=== PATIENT | female | born 1995 | race Two or more races ===

== ENCOUNTER 2018-03-14 23:00 | Emergency (ER) | payer SELFPAY ==
[2018-03-14 23:28] VITALS: BP 136/89
[2018-03-14] MEDS ORDERED: BENZONATATE 100 MG CAPSULE PO ONE (23:53)
--- NOTE | 2018-03-14 23:59 | ER Document Report ---
HPI - HPI Pain Level: 3 Notes: Patient is a 22-year-old female with no significant past medical history presents to the ED with mother complaining of a dry semi-productive cough 2 weeks. Her cough is constant throughout the day and at times at night. She is not aware of anything that improves or worsens her cough. She is still eating and drinking without any difficulties. She is urinating normally and having normal bowel movements. She has tried some mlwb-[id number]-nvahiyh meds with minimal relief. Denies any drug allergies. Denies any smoking or IV drug use. No other concerns or complaints at this time. Patient states that she still ambulatory without any difficulties. Denies any headache, fever, neck pain, URI , sore throat, chest pain, palpitations, syncope, shortness of breath, wheeze, dyspnea, abdominal pain, nausea/vomiting/diarrhea, urinary retention, dysuria, hematuria, or rash. - ROS Systems Reviewed and Negative: Yes All other systems reviewed and negative - CONSTITUTIONAL Constitutional: DENIES: Fever, Chills - EENT EENT: DENIES: Sore Throat, Ear Pain, Eye problems - NEURO Neurology: REPORTS: Headache. DENIES: Weakness, Vision blurred, Dizzinesss / Vertigo - CARDIOVASCULAR Cardiovascular: DENIES: Chest pain - RESPIRATORY Respiratory: REPORTS: Coughing. DENIES: Trouble Breathing - GASTROINTESTINAL Gastrointestinal: DENIES: Abdominal Pain, Black / Bloody Stools - REPRODUCTIVE Reproductive: DENIES: : - MUSCULOSKELETAL Musculoskeletal: DENIES: Extremity pain Past Medical History - Social History Smoking Status: Never Smoker Family History: Reviewed & Not Pertinent Patient has suicidal ideation: No Patient has homicidal ideation: No Renal/ Medical History: Denies: Hx Peritoneal Dialysis - Immunizations Immunizations up to date: Yes Hx Diphtheria, Pertussis, Tetanus Vaccination: Yes Vertical Provider Document - CONSTITUTIONAL Agree With Documented VS: Yes Notes: PHYSICAL EXAMINATION: GENERAL: Well-appearing, well-nourished and in no acute distress. A&Ox4. Answers questions appropriately. Moves comfortably w/o notable distress HEAD: Atraumatic, normocephalic. EYES: Pupils equal round and reactive to light, extraocular movements intact, sclera anicteric, conjunctiva are normal. ENT: EAC clear b/l. TM's intact b/l without erythema, fluid, or perforation. Nares patent and without discharge. oropharynx no erythema without exudates. No tonsilar hypertrophy without erythema or exudate. No palatine shift. Uvula midline. No tongue protrusion. No drooling, hoarseness, or airway compromise. Moist mucous membranes. No sinus tenderness. NECK: Normal range of motion, supple without lymphadenopathy. No rigidity/ meningismus. LUNGS: Breath sounds clear to auscultation bilaterally and equal. No wheezes rales or rhonchi. No retractions HEART: Regular rate and rhythm without murmurs, rubs, gallops. NEUROLOGICAL: Normal speech, normal gait. PSYCH: Normal mood, normal affect. SKIN: Warm, Dry, normal turgor, no rashes or lesions noted. - INFECTION CONTROL TRAVEL OUTSIDE OF THE [place] IN LAST 30 DAYS: No Course - Re-evaluation Re-evalutation: 03/14/18 01:04 Patient is an afebrile, well-hydrated, 22-year-old female who presents to the ED with acute bronchitis, suspect viral. Vitals are stable. PE is otherwise unremarkable. Tessalon given PO today. CXR unremarkable for acute pathology. No other labs or imaging warranted at this time based on H&P. Patient has no significant cardiopulmonary or immunocompromised medical conditions. Patient's lungs are clear to auscultation bilaterally without tachycardia, hypoxia, or tachypnea. Patient is tolerating p.o. without any difficulties. Low suspicion for any meningitis, sepsis, peritonsillar/pharyngeal abscess, respiratory compromise, severe dehydration, or other emergent systemic condition at this time. Patient is aware this condition can change from initial presentation and she needs to monitor symptoms closely. Rx for tessalon pearles. mother is demanding an antibiotic. Advised I would send her with a pocket script only that she may begin with worsening symptoms x3 days. Conservative measures otherwise for symptoms. Recheck with your PCM in 3-5 days. Return to the ED with any worsening/concerning symptoms otherwise as reviewed in discharge. Patient is in agreement. - Vital Signs Vital signs: Temp Pulse Resp BP Pulse Ox 98.7 F 93 18 136/89 H 98 03/14/18 23:27 03/14/18 23:27 03/14/18 23:27 03/14/18 23:27 03/14/18 23:27 Discharge - Discharge Clinical Impression: Acute bronchitis Qualifiers: Bronchitis organism: unspecified organism Qualified Code(s): J20.9 - Acute bronchitis, unspecified Condition: Stable Disposition: HOME, SELF-CARE Instructions: Bronchitis ([facility]) Additional Instructions: Maintain adequate fluid intake Take meds as directed tylenol/ibuprofen as needed over the counter cold medication as needed for symptoms Humidified air may help Wash your hands regularly Wear a mask when coughing F/u: with your PCM in 3-5 days for a recheck Return to the ED with any fever, worsening pain, chest pain, palpitations, syncope, worsening GUARDADO, neck pain/stiffness, shortness of breath, wheezing, drooling, trouble swallowing/breathing, abdominal pain, n/v/d, rash, or worsening/concerning symptoms otherwise. Prescriptions: Amoxicillin Trihydrate [Amoxil 875 mg Tablet] 1 tab PO BID #20 tablet Forms: Elevated Blood Pressure Referrals: [facility] [Provider Group] - Follow up as needed [facility] [Provider Group] - Follow up as needed
--- NOTE | 2018-03-15 01:02 | RADIOLOGY REPORT (SQ) ---
EXAM DESCRIPTION: 2 views of the chest CLINICAL HISTORY: cough COMPARISON: None. FINDINGS: Frontal and lateral views of the chest. The cardiomediastinal silhouette has normal size and contour. No consolidation, pneumothorax, or pleural effusion. No displaced rib fractures identified. Upper abdominal soft tissues are unremarkable. IMPRESSION: 1. No acute pulmonary process identified.
== END 2018-03-15 01:19 | disposition home or self-care (01) ==
LOC: ER 23:00
DX: J20.9 Acute bronchitis, unspecified (principal)
CPT/HCPCS: 71046; 99283

== ENCOUNTER → 2018-04-11 | Outpatient (CLI) | payer SELFPAY ==
--- NOTE | 2018-04-11 15:18 | RADIOLOGY REPORT (SQ) ---
EXAM DESCRIPTION: U/S OB 14+ TRNABD 1GES W/O DOP COMPLETED DATE/TIME: 04/11/2018 2:46 pm REASON FOR STUDY: ENCTR FOR SUPERVISION OF NORMAL 1ST , 2ND TRIMESTER (Z34.02) Z34.02 ENCN TR FOR SUPRVSN OF NORMAL FIRST PREG, SECOND TRIME COMPARISON: None. TECHNIQUE: Transabdominal static and realtime grayscale images acquired of the pelvis. Additional se lected spectral and color Doppler images recorded. All images stored on PACs. CG: Not available. CLINICAL DATES: 15 week 1 day. LIMITATIONS: None. FINDINGS: FETUS: Living intrauterine . ULTRASOUND EGA: 8 week 4 day. ULTRASOUND SARAH: 11/17/2018. CRL: 2.01 cm. FHR: 163 beats per minute. SUBCHORIONIC BLEED: No. SIZE OF BLEED: Not applicable. UTERUS: No masses. No anomalies. CERVICAL LENGTH: 2.8 cm. Closed. RIGHT ADNEXA: Normal ovary with normal vascular flow. No adnexal free fluid. No adnexal masses. LEFT ADNEXA: Normal ovary with normal vascular flow. No adnexal free fluid. Corpus Luteum measuring 1.8 cm. FREE FLUID: None. OTHER: No other significant finding. IMPRESSION: LIVING INTRAUTERINE . EGA 8 WEEK 4 DAY. Trimester of : First - 0 to 13 weeks. TECHNICAL DOCUMENTATION: JOB ID: [id number] [employer]- All Rights Reserved rev Reading location - IP/workstation name: [email or web address]
== END ==
LOC: RAD 13:47
PROVIDERS: ATTEND Nurse Practitioner Women's Health
DX: Z34.02 Encounter for supervision of normal first pregnancy, second trimester (principal)
CPT/HCPCS: 76805

== ENCOUNTER 2018-10-01 02:32 | Outpatient (CLI) | payer MEDICAID ==
[2018-10-01 03:15] LABS: URINE AMPHETAMINES SCREEN NEGATIVE; URINE BARBITURATES SCREEN NEGATIVE; URINE BENZODIAZEPINES SCREEN NEGATIVE; URINE COCAINE SCREEN NEGATIVE; URINE MARIJUANA (THC) SCREEN NEGATIVE; URINE METHADONE SCREEN NEGATIVE; URINE PHENCYCLIDINE SCREEN NEGATIVE
[2018-10-01 03:35] LABS: APPEARANCE,URINE CLEAR; BILIRUBIN,URINE NEGATIVE (NEGATIVE); COLOR,URINE YELLOW; GLUCOSE, URINE 50 mg/dL (NEGATIVE); KETONES,URINE NEGATIVE (NEGATIVE); LEUKOCYTE ESTERASE,URINE LARGE (NEGATIVE); NITRITE,URINE NEGATIVE (NEGATIVE); PROTEIN,URINE NEGATIVE (NEGATIVE); URINE SPECIFIC GRAVITY 1.006; UROBILINOGEN,URINE NEGATIVE mg/dL (<2.0)
[2018-10-01 04:04] LABS: RBCS (WET MOUNT) NO RBCS SEEN; T.VAGINALIS (WET MOUNT) NO TRICHOMONAS SEEN; WBCS (WET MOUNT) 3+ WBCS SEEN; YEAST (WET MOUNT) YEAST SEEN
[2018-10-01 04:05] LABS: BACTERIA (WET MOUNT) 3+ BACTERIA SEEN
[2018-10-01 05:31] LABS: CHLAM PCR NOT DETECTED (NOT DETECT); GON PCR NOT DETECTED (NOT DETECT)
--- NOTE | 2018-10-01 05:46 | Non Stress Test Report ---
Non Stress Test Datetime Report Generated by CPN: 10/01/2018 05:46 DEMOGRAPHIC EGA NST: 33.2 INDICATION Indication for Study: Ordered by Provider MONITORING Monitor Explained: Monitor Explained; Test Explained Time on Monitor: 10/01/2018 05:04 Time off Monitor: 10/01/2018 05:41 NST Duration: 37 NST INTERVENTIONS NST Interventions: PO Hydration; Reposition Patient Physician Notified NST: Dr. Younger BABY A: [id number] BABY A Movement : Present Contraction Frequency : irritability FHR Baseline : 140 Accelerations : 15X15 Decelerations : None Variability : Moderate 6-25bpm NST Review: Meets Criteria for Reactive NST NST Review and Verified By : Randal VINCENT Results: Reactive NST REPORT Report Trigger: Send Report
[2018-10-01] MEDS ORDERED: FLUCONAZOLE 100 MG TABLET PO ONE (05:50)
[2018-10-01] MEDS ORDERED: FLUCONAZOLE 100 MG TABLET ONE (05:51)
== END 2018-10-01 05:56 | disposition home or self-care (01) ==
LOC: LC 02:32
PROVIDERS: ATTEND Obstetrics & Gynecology
PROC: 4A1HXCZ Monitoring of Products of Conception, Cardiac Rate, External Approach (ICD-10-PCS; principal; 2018-10-01)
DX: Z36.89 Encounter for other specified antenatal screening (principal)
CPT/HCPCS: 59025; 87210; 81001; 80307; 87491; 87591; 84112; J3490

== ENCOUNTER 2018-10-26 00:51 | Outpatient (CLI) | payer MEDICAID ==
[2018-10-26 01:37] LABS: ABSOLUTE EOSINOPHILS # (AUTO) 0.2 10^3/uL (0.0-0.6); ABSOLUTE LYMPHOCYTES (AUTO) 2.2 10^3/uL (0.5-4.7); ABSOLUTE MONOCYTES (AUTO) 0.8 10^3/uL (0.1-1.4); ABSOLUTE NEUT (AUTO) 9.3 10^3/uL (1.7-8.2); BASOPHILS % (AUTO) 0.2 % (0-2); EOSINOPHILS % (AUTO) 1.2 % (0-6); HEMATOCRIT 30.6 % (36.0-47.0); LYMPHOCYTES % (AUTO) 17.4 % (13-45); MEAN CORPUSCULAR HEMOGLOBIN 22.7 pg (27.0-33.4); MEAN CORPUSCULAR HGB CONC 32.6 g/dL (32.0-36.0); MEAN CORPUSCULAR VOLUME 70 fl (80-97); MONOCYTES % (AUTO) 6.3 % (3-13); PLATELET COUNT 212 10^3/uL (150-450); RED BLOOD COUNT 4.39 10^6/uL (3.72-5.28); RED CELL DISTRIBUTION WIDTH 15.5 % (11.5-14.0); SEGMENTED NEUTROPHILS % (AUTO) 74.9 % (42-78); TOTAL CELLS COUNTED % (AUTO) 100 %; WHITE BLOOD COUNT 12.4 10^3/uL (4.0-10.5)
[2018-10-26 01:40] LABS: APPEARANCE,URINE CLOUDY; BILIRUBIN,URINE NEGATIVE (NEGATIVE); COLOR,URINE YELLOW; GLUCOSE, URINE 50 mg/dL (NEGATIVE); KETONES,URINE NEGATIVE (NEGATIVE); LEUKOCYTE ESTERASE,URINE LARGE (NEGATIVE); NITRITE,URINE NEGATIVE (NEGATIVE); PROTEIN,URINE NEGATIVE (NEGATIVE); URINE SPECIFIC GRAVITY 1.014; UROBILINOGEN,URINE NEGATIVE mg/dL (<2.0)
[2018-10-26 01:58] LABS: ALANINE AMINOTRANSFERASE 10 U/L (9-52); ALBUMIN 3.2 g/dL (3.5-5.0); ALKALINE PHOSPHATASE 117 U/L (38-126); ANION GAP 7 (5-19); ASPARTATE AMINO TRANSFERASE 15 U/L (14-36); BILIRUBIN,DIRECT 0.1 mg/dL (0.0-0.4); BILIRUBIN,TOTAL 0.3 mg/dL (0.2-1.3); BLOOD UREA NITROGEN 8 mg/dL (7-20); CALCIUM 9.2 mg/dL (8.4-10.2); CARBON DIOXIDE 24 mmol/L (22-30); CHLORIDE 106 mmol/L (98-107); GLUCOSE 109 mg/dL (75-110); TOTAL PROTEIN 6.2 g/dL (6.3-8.2); URIC ACID 3.4 mg/dL (2.5-6.2)
[2018-10-26 01:59] LABS: URINE AMPHETAMINES SCREEN NEGATIVE; URINE BARBITURATES SCREEN NEGATIVE; URINE BENZODIAZEPINES SCREEN NEGATIVE; URINE COCAINE SCREEN NEGATIVE; URINE MARIJUANA (THC) SCREEN NEGATIVE; URINE METHADONE SCREEN NEGATIVE; URINE PHENCYCLIDINE SCREEN NEGATIVE
[2018-10-26 02:03] LABS: UR PRO/CREAT RATIO RESULT 0.2 mg/mg (0.0-0.2); URINE CREATININE 84.9 mg/dL (16-327); URINE PROTEIN 16.2 mg/dL (<12)
== END 2018-10-26 02:58 | disposition home or self-care (01) ==
LOC: LC 00:51
PROVIDERS: ATTEND Student in an Organized Health Care Education/Training Program
PROC: 4A1HXCZ Monitoring of Products of Conception, Cardiac Rate, External Approach (ICD-10-PCS; principal; 2018-10-26)
DX: O47.1 False labor at or after 37 completed weeks of gestation (principal); Z3A.36 36 weeks gestation of pregnancy
CPT/HCPCS: 36415; 59025; 80053; 80307; 81005; 82570; 83615; 84156; 84550; 85025; 87086

== ENCOUNTER 2018-10-28 13:25 | Outpatient (CLI) | payer MEDICAID ==
--- NOTE | 2018-10-28 13:29 | Non Stress Test Report ---
Non Stress Test Datetime Report Generated by CPN: 10/28/2018 13:28 DEMOGRAPHIC EGA NST: 36.6 INDICATION Indication for Study: Ordered by Provider URINE RESULTS Urine Protein, NST: Negative Urine Ketones - NST: Negative Urine Glucose - NST: Positive Urine Blood - NST: Negative MONITORING Monitor Explained: Monitor Explained; Test Explained; Patient Verbalized Understanding Time on Monitor: 10/26/2018 01:12 Time off Monitor: 10/26/2018 02:46 NST Duration: 94 NST INTERVENTIONS NST Interventions: PO Hydration Physician Notified NST: Dr. Coleman BABY A: [id number] BABY A Movement : Present Contraction Frequency : Occasional FHR Baseline : 135 Accelerations : 15X15 Decelerations : None Variability : Moderate 6-25bpm NST Review: Meets Criteria for Reactive NST NST Review and Verified By : Arthur Rodriguez RN NSElvi Results: Reactive NST REPORT Report Trigger: Send Report
[2018-10-28 13:49] LABS: APPEARANCE,URINE SLIGHTLY-CLOUDY; BILIRUBIN,URINE NEGATIVE (NEGATIVE); COLOR,URINE YELLOW; GLUCOSE, URINE >=500 mg/dL (NEGATIVE); KETONES,URINE TRACE mg/dL (NEGATIVE); LEUKOCYTE ESTERASE,URINE LARGE (NEGATIVE); NITRITE,URINE NEGATIVE (NEGATIVE); PROTEIN,URINE 30 mg/dL (NEGATIVE); URINE SPECIFIC GRAVITY 1.023; UROBILINOGEN,URINE NEGATIVE mg/dL (<2.0)
[2018-10-28 14:07] LABS: URINE AMPHETAMINES SCREEN NEGATIVE; URINE BARBITURATES SCREEN NEGATIVE; URINE BENZODIAZEPINES SCREEN NEGATIVE; URINE COCAINE SCREEN NEGATIVE; URINE MARIJUANA (THC) SCREEN NEGATIVE; URINE METHADONE SCREEN NEGATIVE; URINE PHENCYCLIDINE SCREEN NEGATIVE
--- NOTE | 2018-10-28 14:44 | Non Stress Test Report ---
Non Stress Test Datetime Report Generated by CPN: 10/28/2018 14:44 DEMOGRAPHIC EGA NST: 37.1 INDICATION Indication for Study: Ordered by Provider VITAL SIGNS Temperature - NST: 98.4 RESP - NST: 16 MONITORING Monitor Explained: Monitor Explained; Test Explained; Patient Verbalized Understanding Time on Monitor: 10/28/2018 13:36 Time off Monitor: 10/28/2018 14:37 NST Duration: 61 NST INTERVENTIONS NST Interventions: PO Hydration; Reposition Patient Physician Notified NST: Dr. Js BABY A Movement : Present Contraction Frequency : 0 FHR Baseline : 135 Accelerations : 15X15 Decelerations : None Variability : Moderate 6-25bpm NST Review: Meets Criteria for Reactive NST NST Review and Verified By : MIRANDA Gonzalez NST Results: Reactive NST REPORT Report Trigger: Send Report
== END 2018-10-28 14:45 | disposition home or self-care (01) ==
LOC: LC 13:25
PROVIDERS: ATTEND Obstetrics & Gynecology
PROC: 4A1HXCZ Monitoring of Products of Conception, Cardiac Rate, External Approach (ICD-10-PCS; principal; 2018-10-28)
DX: O47.1 False labor at or after 37 completed weeks of gestation (principal); Z3A.37 37 weeks gestation of pregnancy
CPT/HCPCS: 59025; 80307; 81005; 84112

== ENCOUNTER 2018-10-30 09:38 | Outpatient (CLI) | payer MEDICAID ==
[2018-10-30 11:56] LABS: URINE AMPHETAMINES SCREEN NEGATIVE; URINE BARBITURATES SCREEN NEGATIVE; URINE BENZODIAZEPINES SCREEN NEGATIVE; URINE COCAINE SCREEN NEGATIVE; URINE MARIJUANA (THC) SCREEN NEGATIVE; URINE METHADONE SCREEN NEGATIVE; URINE PHENCYCLIDINE SCREEN NEGATIVE
--- NOTE | 2018-10-30 12:09 | Non Stress Test Report ---
Non Stress Test Datetime Report Generated by CPN: 10/30/2018 12:09 DEMOGRAPHIC EGA NST: 37.3 INDICATION Indication for Study: Diabetes Mellitus; Ordered by Provider VITAL SIGNS Temperature - NST: 98.3 Pulse - NST: 95 RESP - NST: 16 NBPSYS NST: 117 NBPDIA NST: 59 MONITORING Monitor Explained: Monitor Explained; Test Explained; Patient Verbalized Understanding Time on Monitor: 10/30/2018 09:46 Time off Monitor: 10/30/2018 12:03 NST Duration: 137 NST INTERVENTIONS NST Interventions: PO Hydration; Reposition Patient Physician Notified NST: P Cm CNM BABY A: [id number] BABY A Movement : Present Contraction Frequency : irregular FHR Baseline : 135 Accelerations : 15X15 Decelerations : None Variability : Moderate 6-25bpm NST Review: Meets Criteria for Reactive NST NST Review and Verified By : Roberta Mast RNC NST Results: Reactive NST REPORT Report Trigger: Send Report
== END 2018-10-30 12:06 | disposition home or self-care (01) ==
LOC: LC 09:38
PROVIDERS: ATTEND Student in an Organized Health Care Education/Training Program
PROC: 4A1HXCZ Monitoring of Products of Conception, Cardiac Rate, External Approach (ICD-10-PCS; principal; 2018-10-30)
DX: O24.913 Unspecified diabetes mellitus in pregnancy, third trimester (principal); O47.1 False labor at or after 37 completed weeks of gestation; Z3A.37 37 weeks gestation of pregnancy
CPT/HCPCS: 59025; 80307; 82962

== ENCOUNTER 2018-11-06 15:18 | Inpatient (IN) | payer MEDICAID ==
[2018-11-06 15:45] LABS: APPEARANCE,URINE CLOUDY; BILIRUBIN,URINE NEGATIVE (NEGATIVE); COLOR,URINE YELLOW; GLUCOSE, URINE >=500 mg/dL (NEGATIVE); KETONES,URINE NEGATIVE (NEGATIVE); LEUKOCYTE ESTERASE,URINE LARGE (NEGATIVE); NITRITE,URINE NEGATIVE (NEGATIVE); PROTEIN,URINE NEGATIVE (NEGATIVE); URINE SPECIFIC GRAVITY 1.015; UROBILINOGEN,URINE NEGATIVE mg/dL (<2.0)
[2018-11-06 16:02] LABS: URINE AMPHETAMINES SCREEN NEGATIVE; URINE BARBITURATES SCREEN NEGATIVE; URINE BENZODIAZEPINES SCREEN NEGATIVE; URINE COCAINE SCREEN NEGATIVE; URINE MARIJUANA (THC) SCREEN NEGATIVE; URINE METHADONE SCREEN NEGATIVE; URINE PHENCYCLIDINE SCREEN NEGATIVE
[2018-11-06 16:18] LABS: BACTERIA (WET MOUNT) 4+ BACTERIA SEEN; T.VAGINALIS (WET MOUNT) NO TRICHOMONAS SEEN; WBCS (WET MOUNT) 4+ WBCS SEEN; YEAST (WET MOUNT) BUDDING YEAST SEEN
--- NOTE | 2018-11-06 17:39 | RADIOLOGY REPORT (SQ) ---
EXAM DESCRIPTION: U/S OB LIMITED COMPLETED DATE/TIME: 11/06/2018 5:20 pm REASON FOR STUDY: JUAN to r/o rupture of membranes COMPARISON: None. TECHNIQUE: Limited transabdominal grayscale ultrasound for evaluation of specific requested obstetri sidney parameters. LIMITATIONS: None. FINDINGS: JUAN: 6.6 cm. FHR: 139 beats per minute. PRESENTATION: Cephalic. PLACENTA: Anterior ANATOMY: Not assessed OTHER: No other significant findings. IMPRESSION: LIMITED OBSTETRICAL ULTRASOUND WITH MEASURED PARAMETERS DELINEATED ABOVE. Trimester of : Third trimester - 28 weeks to delivery. TECHNICAL DOCUMENTATION: JOB ID: [id number] [employer]- All Rights Reserved Reading location - IP/workstation name: [email or web address]
[2018-11-06 19:18] LABS: ABSOLUTE EOSINOPHILS # (AUTO) 0.1 10^3/uL (0.0-0.6); ABSOLUTE LYMPHOCYTES (AUTO) 1.9 10^3/uL (0.5-4.7); ABSOLUTE MONOCYTES (AUTO) 0.8 10^3/uL (0.1-1.4); ABSOLUTE NEUT (AUTO) 9.9 10^3/uL (1.7-8.2); BASOPHILS % (AUTO) 0.2 % (0-2); EOSINOPHILS % (AUTO) 0.9 % (0-6); HEMATOCRIT 29.7 % (36.0-47.0); HEMOGLOBIN 9.5 g/dL (12.0-15.5); LYMPHOCYTES % (AUTO) 15.2 % (13-45); MEAN CORPUSCULAR HEMOGLOBIN 22.3 pg (27.0-33.4); MEAN CORPUSCULAR HGB CONC 32.2 g/dL (32.0-36.0); MEAN CORPUSCULAR VOLUME 69 fl (80-97); MONOCYTES % (AUTO) 6.4 % (3-13); PLATELET COUNT 199 10^3/uL (150-450); RED BLOOD COUNT 4.29 10^6/uL (3.72-5.28); RED CELL DISTRIBUTION WIDTH 15.8 % (11.5-14.0); SEGMENTED NEUTROPHILS % (AUTO) 77.3 % (42-78); TOTAL CELLS COUNTED % (AUTO) 100 %; WHITE BLOOD COUNT 12.8 10^3/uL (4.0-10.5)
--- NOTE | 2018-11-06 23:45 | RADIOLOGY REPORT (SQ) ---
EXAM DESCRIPTION: US LIMITED COMPLETED DATE/TME: 11/06/2018 23:30 CLINICAL HISTORY: 23 years, Female, JUAN to r/o rupture COMPARISON: None. TECHNIQUE: Prior Limited third trimester ultrasound from today's date LIMITATIONS: None. FINDINGS: Limited transabdominal imaging for specific assessment of the amniotic fluid volume was performed, per request. Amniotic fluid volume is a 6.2 cm. heart tones were obtained at 137 bpm. IMPRESSION: JUAN 6.2 cm. On the prior exam, JUAN was 6.6 cm copyright 2010 [employer]- All Rights Reserved
[2018-11-06] MEDS ORDERED: DINOPROSTONE 10 MG VAGINAL INSERT.SR PV PRN (23:52)
[2018-11-06] MEDS ORDERED: DINOPROSTONE 10 MG VAGINAL INSERT.SR ONE (23:58)
[2018-11-07] MEDS ORDERED: RINGERS SOLUTION,LACTATED 300 ML IV ONE (00:15)
[2018-11-07] MEDS ORDERED: NALBUPHINE HCL INJ 10 MG/1 ML AMPULE ONE (02:46)
[2018-11-07] MEDS: RINGERS SOLUTION,LACTATED 1,000 ML IV PRN ×2 (02:57→06:54)
[2018-11-07] MEDS ORDERED: NALBUPHINE HCL INJ 10 MG/1 ML AMPULE INJ ONE (03:00)
[2018-11-07] MEDS ORDERED: MISOPROSTOL 0.2 MG TABLET ONE (03:44)
[2018-11-07] MEDS ORDERED: OXYTOCIN/NORMAL SALINE 20 UNIT/1,000 ML RTUINJ ONE (03:44)
[2018-11-07] MEDS ORDERED: OXYTOCIN 10 UNIT/ML VIAL ONE (03:44)
[2018-11-07] MEDS ORDERED: LIDOCAINE 1% INJ-PF (10 MG/ML) 30 ML SDV ONE (03:44)
[2018-11-07] MEDS ORDERED: EPHEDRINE SULFATE INJ 50 MG/1 ML AMPULE ONE (06:04)
[2018-11-07] MEDS ORDERED: BUPIVACAINE HCL 0.25 % INJ/PF (2.5 MG/1 ML) 30 ML VIAL ONE (06:05)
[2018-11-07] MEDS ORDERED: FENTANYL/BUPIVACAINE/NS/PF 300 MCG/150 ML RTUINJ EPI ONE (06:05)
--- NOTE | 2018-11-07 09:43 | Admission Physical ---
Datetime Report Generated by CPN: 11/07/2018 09:43 CURRENT ADMISSION Chief Complaint: Suspected Ruptured Membranes Indication for Induction: Other Indication for Induction- Other: JUAN dropping with pt c/o possible LOF since 1430 yesterday. actim prom negative, but with dropping JUAN, decision was made to admit Admit Impression : Term, Intrauterine ; No Active Labor Admit Plan: Admit to Unit; Initiate Labor Induction Protocol ALLERGIES Medication Allergies: No Medication Allergies: No Known Allergies (10/30/2018) Latex: No Latex Allergies OBSTETRICAL HISTORY EDC: 11/17/2018 00:00 : 1 Para: 0 Term: 0 : 0 SAB: 0 IAB: 0 Ectopic: 0 Livin Cesareans: 0 VBACs: 0 Multiple Births: 0 Gestational Diabetes: Yes Rh Sensitization: No Incompetent Cervix: No WAQAR: No Infertility: No ART Treatment: No Uterine Anomaly: No IUGR: No Hx Previous C/S: No Macrosomia: No Hx Loss/Stillborn: No PIH: No Hx : No Placenta Previa/Abruption: No Depression/PP Depression: No PTL/PROM: No Post Hemorrhage: No Current Procedures: Ultrasound; NST Obstetrical History Comments: G1- current GDM on glyburide SEE RECORDS Alcohol: No Marijuana : No Cocaine: No Other Illicit Drugs: No Cigarettes: Never Smoker. 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 Heart Disease: No Hosp/Surgery: No Autoimmune Disorder: No Anesthetic Complications: No Kidney Disease: No Abnormal Pap Smear: No Neuro/Epilepsy: No Psychiatric Disorders: No Other Medical Diseases: Yes Hepatitis/Liver Disease: No Significant Family History: No Varicosities/Phlebitis: No Trauma/Violence : No Thyroid Dysfunction: No Medical History Comments: benign breast mass; anemic as a teenager; bronchitis 2018 INFECTIOUS HISTORY Gonorrhea: Yes Genital Herpes: No Chlamydia: Yes Tuberculosis: No Syphilis: No Hepatitis: No HIV/AIDS Exposure: No Rash or Viral Illness: No HPV: No Infectious History Comments: Gonorrhea and Chlamydia 2013; chlamydia 2016 PHYSICAL EXAM General: Normal HEENT: Normal Neurologic: Normal Thyroid: Deferred Heart: Normal Lungs: Normal Breast: Deferred Back: Normal Abdomen: Normal Genitourinary Exam: Normal Extremities: Normal DTRs: Deferred Pelvic Type: Adequate Vital Signs: Reviewed; Within Normal Limits VAGINAL EXAM Dilatation: AL Effacement: 100 Station: 0 Contraction Comments: Q 2 mins without pitocin and cervidil out MEMBRANES Membranes: Ruptured Amniotic Fluid Color: Clear FETUS A EGA: 38.4 Monitoring: External US FHR- Baseline: 150 Variability: Moderate 6-25bpm Accelerations: 15X15 Decelerations: None Estimated Weight (gm): 3200 Presentation: Vertex Admit Comment: G1 at 38+4 admitted yesterday, noncompliant diabetic. BS 145 this morning, c/w dr layne and insulin sliding scale ordered. AROM at 0900, baby LOT to SCOTTY and 0 station. P:labor down for now. anticipate PLANS FOR LABOR AND DELIVERY Labor and Delivery: None Pain Management: Epidural Feeding Preference: Breast Benefit of Breast Feed Discussed: Yes Circumcision: N/A INFORMED CONSENT Assignment: Angelique Cannon MD Signature: with User ID: [email or web address] : with User ID: [email or web address]
[2018-11-07] MEDS ORDERED: OXYTOCIN/NORMAL SALINE 20 UNIT/1,000 ML RTUINJ IV PRN ×2 (13:07→15:12)
[2018-11-07] MEDS ORDERED: MEASLES,MUMPS&RUBELLA VACC/PF 0.5 ML VIAL SUBCUT PRN (15:12)
[2018-11-07] MEDS ORDERED: DIPH/PERTUSS(ACELL)/TETANUS VAC/PF 0.5 ML SYR (>=10YO) IM PRN (15:12)
[2018-11-07] MEDS ORDERED: BENZOCAINE/MENTHOL AEROSOL SPRAY 56 ML TOP PRN (15:12)
[2018-11-07] MEDS ORDERED: DIBUCAINE 1% OINTMENT 28 GM TP PRN (15:12)
[2018-11-07] MEDS ORDERED: ACETAMINOPHEN WITH CODEINE #3 TABLET PO PRN ×2 (15:12)
[2018-11-07] MEDS ORDERED: ZOLPIDEM TARTRATE 5 MG TABLET PO PRN (15:12)
--- NOTE | 2018-11-07 16:49 | Warning Signs in Babies ---
VOD Warning Signs Datetime Report Generated by [facility]: 11/07/2018 16:49 VOD#608 -Warning Signs in Babies: Viewed with Parent(s)/Family (10/01/2018 02:33:Humberto Sinclair RN)
[2018-11-07] MEDS: FERROUS SULFATE 325 MG TABLET PO SCH (18:32)
[2018-11-07] MEDS: DOCUSATE SODIUM 100 MG CAPSULE PO SCH (18:32)
[2018-11-07] MEDS: IBUPROFEN 800 MG TABLET PO SCH (21:44)
[2018-11-08] MEDS: IBUPROFEN 800 MG TABLET PO SCH ×3 (05:34→21:37)
[2018-11-08 07:34] LABS: HEMATOCRIT 26.2 % (36.0-47.0); HEMOGLOBIN 8.3 g/dL (12.0-15.5); MEAN CORPUSCULAR HGB CONC 31.9 g/dL (32.0-36.0); MEAN CORPUSCULAR VOLUME 69 fl (80-97); PLATELET COUNT 188 10^3/uL (150-450); RED BLOOD COUNT 3.79 10^6/uL (3.72-5.28); RED CELL DISTRIBUTION WIDTH 15.9 % (11.5-14.0); WHITE BLOOD COUNT 13.8 10^3/uL (4.0-10.5)
[2018-11-08] MEDS ORDERED: IRON SUCROSE COMPLEX INJ/PF 100 MG/5 ML SDV IV ONE (09:00)
[2018-11-08] MEDS: SENNOSIDES/DOCUSATE 8.6-50 MG 1 EACH TABLET PO SCH (09:59)
[2018-11-08] MEDS: DOCUSATE SODIUM 100 MG CAPSULE PO SCH ×2 (09:59→18:03)
[2018-11-08] MEDS: FERROUS SULFATE 325 MG TABLET PO SCH ×2 (09:59→18:03)
[2018-11-08] MEDS: PRENATAL VITAMIN W DHA CAPSULE PO SCH (09:59)
--- NOTE | 2018-11-08 10:22 | PDOC PROGRESS REPORT ---
Subjective-OB Progress Note for:: 11/08/18 Subjective: reports pain controlled with current meds, bleeding slowing, denies needs Physical Exam (OB) Vital Signs: Temp Pulse Resp BP Pulse Ox 97.8 F 78 18 113/59 L 99 11/08/18 08:19 11/08/18 08:19 11/08/18 08:19 11/08/18 08:19 11/08/18 08:19 Intake & Output 11/07/18 11/08/18 11/09/18 06:59 06:59 06:59 Intake Total 494 1000 Balance 494 1000 Weight 80.3 kg - Abdomen Description: Soft Hernia Present: No Fundal Description: Firm, Midline Fundal Height: u/u - u/2 - Abdominal Distension: No distension Tenderness: Nontender - Extremities Lower extremities: Jemal's sign - neg Calf: Normal, Nontender Objective-Diagnostic Laboratory: 11/08/18 07:04 11/08/18 07:04 WBC 13.8 H RBC 3.79 Hgb 8.3 L Hct 26.2 L MCV 69 L MCH 22.0 L MCHC 31.9 L RDW 15.9 H Plt Count 188 Assessment and Plan(PN) - Assessment and Plan (1) Obstetrical laceration Is this a current diagnosis for this admission?: Yes (2) Status post vacuum-assisted vaginal delivery Is this a current diagnosis for this admission?: Yes - Time Spent with Patient Time with patient: Less than 15 minutes Medications reviewed and adjusted accordingly: Yes - Disposition Anticipated Discharge: Home Within: within 24 hours
[2018-11-09] MEDS: IBUPROFEN 800 MG TABLET PO SCH (05:10)
[2018-11-09 08:19] VITALS: BP 123/64
--- NOTE | 2018-11-09 08:47 | PDOC DISCHARGE SUMMARY ---
Final Diagnosis Discharge Date: 11/09/18 - Final Diagnosis (1) Obstetrical laceration Is this a current diagnosis for this admission?: Yes (2) Status post vacuum-assisted vaginal delivery Is this a current diagnosis for this admission?: Yes Discharge Data - Discharge Medication Prescriptions: Ibuprofen [Motrin 800 mg Tablet] 800 mg PO Q8HP PRN #60 tablet PRN Reason: Home Medications: Prenat 115/Iron Fum/Folic/Dss [ 19 Tablet] 1 tab PO DAILY 10/01/18 Ranitidine HCl [Zantac 75 mg Tablet] 150 mg PO DAILY 10/26/18 Ferrous Sulfate [Feosol 325 mg Tablet] 325 mg PO BID tablet 11/09/18 Ibuprofen [Motrin 800 mg Tablet] 800 mg PO Q8HP PRN #60 tablet 11/09/18 Procedures: NST Intrapartum Procedure(s): Vacuum Extraction Complication(s): Laceration-Periurethral - Diagnosis Test Laboratory: Temp Pulse Resp BP Pulse Ox 98.1 F 82 18 123/64 99 11/09/18 07:21 11/09/18 07:21 11/09/18 07:21 11/09/18 07:21 11/09/18 07:21 11/06/18 11/06/18 11/08/18 15:26 19:03 07:04 RBC 4.29 3.79 Hgb 9.5 L 8.3 L Hct 29.7 L 26.2 L Urine Opiates Screen NEGATIVE - Discharge information/Instructions Discharge Activity: Balance Activity w/Rest, Pelvic Rest Discharge Diet: Regular Disposition: HOME, SELF-CARE Follow up with: [facility] in: 4, Weeks
[2018-11-09] MEDS: PRENATAL VITAMIN W DHA CAPSULE PO SCH (10:58)
[2018-11-09] MEDS: FERROUS SULFATE 325 MG TABLET PO SCH (10:58)
[2018-11-09] MEDS: DOCUSATE SODIUM 100 MG CAPSULE PO SCH (10:58)
[2018-11-09] MEDS: SENNOSIDES/DOCUSATE 8.6-50 MG 1 EACH TABLET PO SCH (10:59)
--- NOTE | 2018-11-17 10:29 | Delivery Summary ---
Del Sum A-C Datetime Report Generated by CPN: 11/17/2018 10:29 DELIVERY PERSONNEL DELIVERY PERSONNEL: [id number] Delivery Doctor:: Angelique Cannon MD Labor and Delivery Nurse:: Humberto Sinclair RN Nursery Nurse:: Charanjit Vasquez RN Candle Wrapping Machine Operator/TEST LEAD: Sunny Baldwin CST Candle Wrapping Machine Operator/TEST LEAD: Gudelia Lopez, INTERNATIONAL MARKETING MANAGER MATERNAL INFORMATION Delivery Anesthesia: Epidural Medications After Delivery: Pitocin Drip 20 Units/1000ml NSS Maternal Complications: None Provider Comments: VAVD of a viable female at 1450 with an OA with body cord x 1 presentation; APGARS 8, 9; 1st degree periurethral lac LABOR SUMMARY EDC: 11/17/2018 00:00 No. Babies in Womb: 1 Attempted: No Labor Anesthesia: Epidural LABOR INFORMATION Reason for Induction: Not Applicable Onset of Labor: 11/07/2018 06:40 Complete Dilatation: 11/07/2018 08:41 Cervical Ripening Agents: Cervidil Oxytocin: Augmentation Group B Beta Strep: Negative Antibiotics # of Doses: 0 Steroids Given: None Reason Steroids Not Administered: Not Applicable MEMBRANES Membranes Rupture Method: Artificial Rupture of Membranes: 11/07/2018 08:49 Length of Rupture (hr): 6.02 Amniotic Fluid Color: Clear Amniotic Fluid Amount: Small Amniotic Fluid Odor: Normal STAGES OF LABOR Stage 1 hr: 2 Stage 1 min: 1 Stage 2 hr: 6 Stage 2 min: 9 Stage 3 hr: 0 Stage 3 min: 4 Total Time in Labor hr: 8 Total Time in Labor min: 14 VAGINAL DELIVERY Episiotomy: None Laceration #1: Periurethral Laceration Extension #1: First Degree Laceration Repair: Yes Laceration Repair Note: 3-0 chromic used to repair the right periurethral lac Sponge Count Correct: Yes Sharps Count Correct: Yes CSECTION DELIVERY Primary Indication: N/A Secondary Indication: N/A CSection Incidence: N/A Labor: N/A Elective: N/A CSection Incision: N/A BABY A INFORMATION Delivery Date/Time: 11/07/2018 14:50 Method of Delivery: Vaginal Born in Route : No : N/A Forceps: N/A Vacuum Extraction: Successful Shoulder Dystocia : No ASSISTED DELIVERY BABY A Indication for Assisted Delivery: maternal exhaustion Catheter Prior to Procedure: Yes Station Vacuum/Forcep Apply: +2 Position Vacuum/Forcep Apply: OA Vacuum Number of Pulls: 4 Vacuum Number of PopOffs: 0 Vacuum Maximum Pressure Obtained: 500 Reduce Pressure btwn Ctx: Yes--released each time Vacuum Home Appraiser: [place] Total Time Vacuum Applied: 15 minutes PRESENTATION/POSITION BABY A Presentation: Cephalic Presentation: Cephalic Presentation: Cephalic Cephalic Presentation: Vertex Vertex Position: Right Occipital Anterior Breech Presentation: N/A PLACENTA INFORMATION BABY A Placenta Delivery Time : 11/07/2018 14:54 Placenta Method of Delivery: Spontaneous Placenta Status: Delivered SCORES BABY A Heart Rate 1 min: >100 bpm Resp Effort 1 min: Good Cry Reflex Irritability 1 min: Cough or Sneeze or Pulls Away Muscle Tone 1 min: Active Motion Color 1 min: Blue/Pale Resuscitation Effort 1 min: Tactile Stimulation SCORE 1 MIN: 8 Heart Rate 5 min: >100 bpm Resp Effort 5 min: Good Cry Reflex Irritability 5 min: Cough or Sneeze or Pulls Away Muscle Tone 5 min: Active Motion Color 5 min: Body D'[place], Extremities Blue Resuscitation Effort 5 min: N/A SCORE 5 MIN: 9 INFANT INFORMATION BABY A Gestational Age at Delivery: 38.4 Gestational Status: Early Term- 37- 38.6 Weeks Outcome : Liveborn Infant Condition : Stable Sex: Female IDENTIFICATION BABY A Verification Date/Time: 11/07/2018 16:49 ID Band Number: [id number] Mother's Name Verified: Yes Infant RN Verifying Infant: [place]/Nguyễn Sinclair RN WEIGHT/LENGTH BABY A Infant Birthweight (gm): 3450 Weight (lb): 7 Infant Weight (oz): 10 Infant Length (in): 20.00 Length (cm): 50.80 CORD INFORMATION BABY A No. Cord Vessels: 3 Nuchal Cord : Around Neck x1, Loose Cord Blood Taken: Yes-For Storage (Mom's Blood type +) Infant Suction: Mouth; Nose ASSESSMENT BABY A Skin to Skin: Yes Skin to Skin: Yes BABY B INFORMATION : N/A SIGNATURES Signature: with User ID: [email or web address] : I was personally available for consultation and serving as supervising physician for the MLP.
== END 2018-11-09 13:30 | disposition home or self-care (01) | DRG 807 ==
LOC: LC 15:18 → LR 23:56 → 2S 11-07 17:40
PROVIDERS: ADMIT Obstetrics & Gynecology Gynecology; ATTEND Obstetrics & Gynecology
PROC: 4A1HXCZ Monitoring of Products of Conception, Cardiac Rate, External Approach (ICD-10-PCS; 2018-11-06)
PROC: 10D07Z6 Extraction of Products of Conception, Vacuum, Via Natural or Artificial Opening (ICD-10-PCS; principal; 2018-11-07)
PROC: 0UQMXZZ Repair Vulva, External Approach (ICD-10-PCS; 2018-11-07)
PROC: 3E0234Z Introduction of Serum, Toxoid and Vaccine into Muscle, Percutaneous Approach (ICD-10-PCS; 2018-11-09)
DX: O75.81 Maternal exhaustion complicating labor and delivery (principal); O69.81X0 Labor and delivery complicated by cord around neck, without compression, not applicable or unspecified; Z37.0 Single live birth; O71.82 Other specified trauma to perineum and vulva; Z23 Encounter for immunization; O24.425 Gestational diabetes mellitus in childbirth, controlled by oral hypoglycemic drugs; Z86.19 Personal history of other infectious and parasitic diseases; Z3A.38 38 weeks gestation of pregnancy; Z91.19 Patient's noncompliance with other medical treatment and regimen
CPT/HCPCS: 36415; 76815; 80307; 81005; 82962; 84112; 85025; 85027; 86592; 86850; 86900; 86901; 87210; 90715; J1756; J2300; J2590; J3010; J3490; Q0114

== ENCOUNTER 2018-11-11 15:38 | Emergency (ER) | payer MEDICAID ==
--- NOTE | 2018-11-11 16:12 | ER Document Report ---
ED General - General Chief Complaint: Jaundice Stated Complaint: YELLOW SKIN Time Seen by Provider: 11/11/18 15:48 Notes: This is a 23-year-old pleasant female to the emergency department with chief complaint of "everybody says a look like a have jaundice". Patient had a baby 4 days ago. Blood counts were low and they were going to do transfusion but decided against it. Patient denies any chest pain, shortness of breath, large amounts of vaginal bleeding or other issues at this time. Patient is breast- feeding. Is a little tired and feels a little worn out but otherwise feels normal. Patient went to be evaluated and was seen by a provider at OB office and was sent here for further testing. It is close to 5:00 so patient sent to the ED TRAVEL OUTSIDE OF THE [place] IN LAST 30 DAYS: No - HPI Onset: Yesterday Onset/Duration: Gradual Severity: Mild Pain Level: Denies Associated symptoms: None Exacerbated by: Denies Relieved by: Denies Recently seen / treated by doctor: Yes - Related Data Allergies/Adverse Reactions: No Known Allergies Allergy (Verified 10/30/18 09:58) Past Medical History - General Information source: Patient - Social History Smoking Status: Never Smoker Chew tobacco use (# tins/day): No Frequency of alcohol use: None Drug Abuse: None Lives with: Family Family History: Reviewed & Not Pertinent Patient has suicidal ideation: No Patient has homicidal ideation: No - Medical History Medical History: Negative Renal/ Medical History: Denies: Hx Peritoneal Dialysis - Immunizations Immunizations up to date: Yes Hx Diphtheria, Pertussis, Tetanus Vaccination: Yes Review of Systems - Review of Systems Notes: Constitutional: denies: Chills, Diaphoresis, Fever, Malaise, Weakness EENT: denies: Eye discharge, Blurred vision, Tearing, Double vision, Nose congestion, Nose discharge, Throat swelling, Mouth pain Cardiovascular: denies: Palpitations, Heart racing, Orthopnea, Dyspnea, Chest pain Respiratory: denies: Cough, Hurts to breathe, Wheezing, Shortness of breath Gastrointestinal: denies: Abdominal pain, Diarrhea, Nausea, Vomiting, Black stools, bright red blood in stool Genitourinary: denies: Burning, Dysuria, Discharge, Frequency, Flank pain, Hematuria Musculoskeletal: denies: Joint pain, Joint swelling, Muscle pain, Muscle stiff ness, back pain Hematologic/Lymphatic: denies: Anemia, Easy bleeding, Easy bruising, Blood clots Neurological/Psychological: denies: Confusion, Dementia, Depression, Loss of consciousness Skin: No lesions, no masses, no skin breakdown, no abscesses Physical Exam - Vital signs Vitals: Temp Pulse Resp BP Pulse Ox 98.0 F 78 20 130/82 H 100 11/11/18 15:43 11/11/18 15:43 11/11/18 15:43 11/11/18 15:43 11/11/18 15:43 Interpretation: Normal - General General appearance: Appears well, Alert - HEENT Head: Normocephalic, Atraumatic Eyes: Normal Pupils: PERRL - Respiratory Respiratory status: No respiratory distress Chest status: Nontender Breath sounds: Normal Chest palpation: Normal - Cardiovascular Rhythm: Regular Heart sounds: Normal auscultation Murmur: No - Abdominal Inspection: Normal Distension: No distension Bowel sounds: Normal Tenderness: Nontender Organomegaly: No organomegaly - Back Back: Normal, Nontender - Extremities General upper extremity: Normal inspection, Nontender, Normal color, Normal ROM, Normal temperature General lower extremity: Normal inspection, Nontender, Normal color, Normal ROM, Normal temperature, Normal weight bearing. No: Jemal's sign - Neurological Neuro grossly intact: Yes Cognition: Normal Orientation: AAOx4 Burns Coma Scale Eye Opening: Spontaneous Burns Coma Scale Verbal: Oriented Burns Coma Scale Motor: Obeys Commands Burns Coma Scale Total: 15 Speech: Normal Motor strength normal: LUE, RUE, LLE, RLE Sensory: Normal - Psychological Associated symptoms: Normal affect, Normal mood - Skin Skin Temperature: Warm Skin Moisture: Dry Skin Color: Pale. negative: Jaundiced, Hypopigmentation, Petechiae, Ecchymosis Course - Re-evaluation Re-evalutation: 11/11/18 16:05 This this is a 23-year-old asymptomatic female recent day #4 from delivery vaginal delivery associated with fairly significant amount of bleeding . Blood counts were reportedly low. Sent here for further evaluation. 11/11/18 16:48 Laboratory 11/11/18 11/11/18 16:08 16:08 WBC 9.1 RBC 4.68 Hgb 10.3 L Hct 32.7 L MCV 70 L MCH 22.1 L MCHC 31.7 L RDW 15.8 H Plt Count 238 Seg Neutrophils % 72.5 Lymphocytes % 18.2 Monocytes % 5.2 Eosinophils % 3.8 Basophils % 0.3 Absolute Neutrophils 6.6 Absolute Lymphocytes 1.7 Absolute Monocytes 0.5 Absolute Eosinophils 0.3 Absolute Basophils 0.0 Sodium 137.5 Potassium 4.2 Chloride 105 Carbon Dioxide 26 Anion Gap 7 BUN 11 Creatinine 0.81 Est GFR ( Amer) > 60 Est GFR (Non-Af Amer) > 60 Glucose 107 Calcium 8.7 Total Bilirubin 0.3 Direct Bilirubin 0.2 Neonat Total Bilirubin Not Reportable Neonat Direct Bilirubin Not Reportable Neonat Indirect Bili Not Reportable AST 24 ALT 51 Alkaline Phosphatase 91 Total Protein 5.7 L Albumin 3.2 L 11/11/18 16:48 Labs show improvement in hemoglobin and hematocrit. Low MCV so consistent with iron deficiency. Iron studies ordered. Patient already prescribed iron supplements. Will advise she continue. Will advise outpatient follow-up at this time. Find no reason at this time to do any further testing or transfu sions. Patient was explained the results. Will discharge at this time in stable condition - Vital Signs Vital signs: Temp Pulse Resp BP Pulse Ox 98.0 F 78 20 130/82 H 100 11/11/18 15:43 11/11/18 15:43 11/11/18 15:43 11/11/18 15:43 11/11/18 15:43 - Laboratory Result Diagrams: 11/11/18 16:08 11/11/18 16:08 Laboratory results interpreted by me: 11/11/18 11/11/18 16:08 16:08 Hgb 10.3 L Hct 32.7 L MCV 70 L MCH 22.1 L MCHC 31.7 L RDW 15.8 H Total Protein 5.7 L Albumin 3.2 L Discharge - Discharge Clinical Impression: anemia Condition: Good Disposition: HOME, SELF-CARE Instructions: Anemia, Iron Deficiency ([facility]) Additional Instructions: Continue to take the iron supplements as prescribed at discharge. In the event that you begin to have worsening symptoms or concerns please return immediately. Referrals: OLIVA GIRON DO [ACTIVE STAFF] - Follow up in 3-5 days
[2018-11-11 16:19] LABS: ABSOLUTE EOSINOPHILS # (AUTO) 0.3 10^3/uL (0.0-0.6); ABSOLUTE LYMPHOCYTES (AUTO) 1.7 10^3/uL (0.5-4.7); ABSOLUTE MONOCYTES (AUTO) 0.5 10^3/uL (0.1-1.4); ABSOLUTE NEUT (AUTO) 6.6 10^3/uL (1.7-8.2); BASOPHILS % (AUTO) 0.3 % (0-2); EOSINOPHILS % (AUTO) 3.8 % (0-6); HEMATOCRIT 32.7 % (36.0-47.0); HEMOGLOBIN 10.3 g/dL (12.0-15.5); LYMPHOCYTES % (AUTO) 18.2 % (13-45); MEAN CORPUSCULAR HEMOGLOBIN 22.1 pg (27.0-33.4); MEAN CORPUSCULAR HGB CONC 31.7 g/dL (32.0-36.0); MEAN CORPUSCULAR VOLUME 70 fl (80-97); MONOCYTES % (AUTO) 5.2 % (3-13); PLATELET COUNT 238 10^3/uL (150-450); RED BLOOD COUNT 4.68 10^6/uL (3.72-5.28); RED CELL DISTRIBUTION WIDTH 15.8 % (11.5-14.0); SEGMENTED NEUTROPHILS % (AUTO) 72.5 % (42-78); TOTAL CELLS COUNTED % (AUTO) 100 %; WHITE BLOOD COUNT 9.1 10^3/uL (4.0-10.5)
[2018-11-11 16:34] LABS: ALANINE AMINOTRANSFERASE 51 U/L (9-52); ALBUMIN 3.2 g/dL (3.5-5.0); ALKALINE PHOSPHATASE 91 U/L (38-126); ANION GAP 7 (5-19); ASPARTATE AMINO TRANSFERASE 24 U/L (14-36); BILIRUBIN,DIRECT 0.2 mg/dL (0.0-0.4); BILIRUBIN,TOTAL 0.3 mg/dL (0.2-1.3); BLOOD UREA NITROGEN 11 mg/dL (7-20); CALCIUM 8.7 mg/dL (8.4-10.2); CARBON DIOXIDE 26 mmol/L (22-30); CHLORIDE 105 mmol/L (98-107); GLUCOSE 107 mg/dL (75-110); POTASSIUM 4.2 mmol/L (3.6-5.0); SODIUM 137.5 mmol/L (137-145); TOTAL PROTEIN 5.7 g/dL (6.3-8.2)
[2018-11-11 16:52] LABS: ABSOLUTE RETICS # 0.115 10^6/uL (0.028-0.122)
[2018-11-11 16:54] LABS: IRON(TIBC) 24.1 ug/dL (37-170)
[2018-11-11 17:17] VITALS: BP 128/80
== END 2018-11-11 17:16 | disposition home or self-care (01) ==
LOC: ER 15:38
DX: O99.89 Other specified diseases and conditions complicating pregnancy, childbirth and the puerperium (principal); D64.89 Other specified anemias; R53.81 Other malaise
CPT/HCPCS: 36415; 80053; 82607; 82728; 82746; 83540; 83550; 85025; 85045; 99284